=== PATIENT | female | born 1965 | race Caucasian/White ===

== ENCOUNTER 2020-10-01 04:38 | Day surgery (SDC) | payer OTHER ==
[2020-09-26 16:25] VITALS: BMI 19.8
[2020-10-01 08:21] VITALS: TEMP 98
[2020-10-01 10:44] VITALS: BP 95/45; PULSE 56
== END 2020-10-01 10:35 | disposition home or self-care (01) ==
LOC: JASU-ENDO 04:38
PROVIDERS: ATTEND Internal Medicine Gastroenterology
PROC: 0DBP8ZX Excision of Rectum, Via Natural or Artificial Opening Endoscopic, Diagnostic (ICD-10-PCS; principal; 2020-10-01 09:00)
DX: Z12.11 Encounter for screening for malignant neoplasm of colon (principal); K62.1 Rectal polyp; K59.89 Other specified functional intestinal disorders; K64.8 Other hemorrhoids; Z80.0 Family history of malignant neoplasm of digestive organs